=== PATIENT | male | born 1985 | race Caucasian/White ===

== ENCOUNTER 2022-11-11 14:07 | Emergency (ER) | payer MEDICARE ==
[~2022-11-11] VITALS: Ht 182.8 cm; Wt 97.5 kg
[2022-11-11] MEDS ORDERED: LASIX40 MG PO (15:15)
[2022-11-11] MEDS ORDERED: ALDACTONE25 M1 PO (15:15)
[2022-11-11] MEDS ORDERED: LACTULOSE10 GM/153 PO (15:16)
[2022-11-11] MEDS ORDERED: CEFTRIAXON1 GM/50 ML IV (15:17)
== END 2022-11-11 17:52 | disposition left against medical advice (07) ==
LOC: ED 14:07
DX: F10.239 Alcohol dependence with withdrawal, unspecified (principal); Z53.21 Procedure and treatment not carried out due to patient leaving prior to being seen by health care provider